=== PATIENT | female | born 1960 | race Caucasian/White ===

== ENCOUNTER 2025-04-03 15:07 | Emergency (ER) | payer SELFPAY ==
[2025-04-03] VITALS (10 sets, daily range): BP systolic 156–220; BP diastolic 88–140; PULSE 83–112; RESP 14–22; TEMP 36.7; O2SAT 93–100; BMI 20.9
--- NOTE | 2025-04-03 15:10 | ECG_ITS ---
[facility] Test Date: 2025-04-03 Pat Name: Naomi Sykes Department: Room: Gender: Female [facility] Cancer Program Coordinator: : 1960 Requested By: Misha Horton Order Number: [id number] Reading MD: YASMINE HOFFMAN Measurements Intervals [place] Rate: 87 P: 43 LA: 172 QRS: 52 QRSD: 99 T: 49 QT: 403 QTc: 487 Interpretive Statements SINUS RHYTHM NONSPECIFIC ST & T-WAVE ABNORMALITY No previous ECG available for comparison Electronically Signed On 04-05-2025 13:57:43 CDT by YASMINE HOFFMAN [email or web address] [id number]
--- NOTE | 2025-04-03 15:10 | CTR_ITS ---
PROCEDURE INFORMATION: Exam: CT Head Without Contrast Exam date and time: 04/03/2025 3:12 PM Age: 64 years old Clinical indication: Stroke-like symptoms; Syncope/collapse and vomiting; Additional info: Symptoms of acute stroke TECHNIQUE: Imaging protocol: Computed tomography of the head without contrast. Radiation optimization: All CT scans at this facility use at least one of these dose optimization techniques: automated exposure control; mA and/or kV adjustment per patient size (includes targeted exams where dose is matched to clinical indication); or iterative reconstruction. Other technique: STROKE PROTOCOL was implemented. COMPARISON: CR XR cervical spine 3V* [id number] 05/06/2019 10:31 AM RADIATION DOSE METRICS: Total DLP (mGy-cm): 1051.88 FINDINGS: Brain: Large acute left basal ganglia intraparenchymal hematoma measuring 6.5 cm AP x 3.5 cm transverse by 4.7 cm craniocaudal with mass effect and 7 mm rightward midline shift. There is intraventricular extension with hemorrhage in the lateral, 3rd and 4th ventricles. Basilar cisterns are patent. Large cavity noted in the right basal ganglia, which may reflect sequela of a remote hemorrhagic infarct. Cerebral ventricles: There is effacement of the left lateral ventricle. Prominence of the right temporal horn may reflect early hydrocephalus. Paranasal sinuses: The visualized paranasal sinuses are well aerated. Mastoid air cells: The visualized mastoids and middle ears are clear. Bones: Calvarium is intact. No evidence of acute fracture. Soft tissues: No gross soft tissue abnormality. CT/CT head thrombolytic [id number] IMPRESSION: 1. Large left basal ganglia acute intraparenchymal hematoma with 7 mm rightward midline shift and intraventricular extension. 2. Prominence of the temporal horn of the right lateral ventricle, which can be seen with early hydrocephalus. ASSESSMENT: ASPECTS ([place] Stroke Program Early CT Score) is 10.
--- NOTE | 2025-04-03 15:17 | ED_ITS ---
HPI - Neuro Symptoms/Deficit 2 General: Chief Complaint: Fall Stated Complaint: stroke like symptoms Time Seen by Provider: 04/03/25 15:10 History of Present Illness: 64-year-old female presents emergency ro om with family after having collapsed at home family [place] to the car and brought her here on arrival here she is obtunded sitting upright in a chair she has not limited movement of her right arm. She is vomiting. She has a little bit of right-sided facial droop. Family did not report any seizure-like activity she just collapsed and was poorly responsive. Related Data Allergies Allergy/AdvReac Type Severity Reaction Status Date / Time No Known Allergies Allergy Verified 04/03/25 15:24 Review of Systems 2 General: Reports: ROS unobtainable due to endotracheal tube and ROS unobtainable due to medical condition NIH stroke score 2 NIHSS: Level Of Consciousness - 1a: 3 Level Of Consciousness Questions - 1b: Neither Correct Level Of Consciousness Commands - 1c: Neither Correct Best Gaze - 2: Forced Deviation Visual Rose - 3: Complete Hemianopia F acial Palsy - 4: Partial Paralysis Motor Arm Right - 5: No Movement Motor Arm Left - 5: No Drift Motor Leg Right - 6: No Movement Motor Leg Left - 6: No Drift Limb Ataxia - 7: Present In Two Limbs Sensory - 8: Severe To Total Loss Best Language - 9: Mute; Global Aphasia Dysarthia - 10: I ntubated Extinction And Inattention - 11: 0 Score: Total Score: 28 Physical Exam 2 HENMT: COMMON NORMALS: normocephalic, atraumatic and hearing grossly normal bilaterally HEAD & SCALP: normocephalic and atraumatic Eye: OTHER: Forced eye deviation to the left Resp: COMMON NORMALS: normal respiratory effort, No retractions, No use of accessory muscles and clear to auscultation bilaterally AUSCULTATION: clear to auscultation bilaterally Cardio: COMMON NORMALS: regular rate, regular rhythm and No murmurs present (Cardio) RATE: regular rate RHYTHM: regular rhythm GI: COMMON NORMALS: Soft to palpation and No hepatosplenomegaly present A USCULTATION: Yes normoactive bowel sounds PALPATION: Yes Soft to palpation, No Tenderness to palpation present (GI), No Guarding due to palpation present (GI) and Yes No hepatosplenomegaly present Extremity: COMMON NORMALS: normal to inspection, capillary refill normal, no clubbing, cyanosis or edema, no calf tenderness and no pedal edema Skin: COMMON NORMALS: no rashes or lesions noted GENERAL SKIN EXAM: no rashes or lesions noted Procedures Intubation Time out performed: Yes sedative: Etomidate Mg Given: 20 paralytic: Vecuronium Mg Given: 10 Laryngoscope: fiber optic video scope ET Tube Size: 8 ET Tube Uncuffed: No Tube Secured Depth (cm): 22 Tube Secured Location: teeth Tube Placement Confirmation: visualized tube passing through cords, equal breath sounds bilaterally, no breath sounds over epigastrium and confirmation by capnometry Patient Tolerated Procedure: well Intubation Complications: none Course 2 Vital Signs: Vital signs: Vital Signs Temperature 98.0 F 04/03/25 15:10 Pulse Rate 101 H 04/03/25 16:22 Respiratory Rate 14 04/03/25 16:22 Blood Pressure 169/99 04/03/25 16:22 Pulse Oximetry 100 04/03/25 16:22 Oxygen Delivery Me thod Mechanical Ventil ation 04/03/25 16:20 Fraction of Inspir ed Oxygen 100 04/03/25 16:20 MDM - Neuro Symptoms/Deficit Medical Decision Making Large acute intra parenchymal intraventricular bleed due to hypertension most likely. CT reviewed patient intubated due to sonorous respirations she has been started on propofol for sedation nicardipine for blood pressure control and given TXA. Discussed with transfer line at [facility] they will accept at [place] [address] Morales will be the accepting at [facility] will transfer via air VAC Lab Data 04/03/25 15:28 04/03/25 15:[address] 04/03/25 15:10 IMPRESSION: 1. Large left basal ganglia acute intraparenchymal hematoma with 7 mm rightward midline shift and intraventricular extension. 2. Prominence of the temporal horn of the right lateral ventricle, which can be seen with early hydrocephalus. ASSESSMENT: ASPECTS ([place] Stroke Program Early CT Score) is 10. ADDENDUM: 04/03/25 1532 The findings were verbally communicated by telephone with Dr. Malik at 3:30 PM CDT on 04/03/2025. ADDENDUM: 04/03/25 1535 Approximate hematoma volume 53.5 cc. Chest X-Ray 04/03/25 15:37 IMPRESSION: 1. Endotracheal tube in place with tip 3.5 cm from the miguel. Laboratory Results WBC 14.93 10^3/uL (3.29-11.43) H 04/03/25 15: RBC 4.65 10^6/uL (3.85-5.65) 04/03/25 15: Hgb 13.40 g/dL (11.27-16.99) 04/03/25: Hct 42.4 % (36-47) 04/03/25: MCV 91.2 fl (85-98) 04/03/25 15: MCH 28.8 pg (27-33) 04/03/25: MCHC 31.6 g/dL (30-55) 04/03/25: RDW 13.1 % (12.1-15.1) 04/03/25: Plt Count 271 10^3/cmm (157-399) 04/03/25: MPV 9.7 fL (7.4-10.4) 04/03/25: Neut % (Auto) 85.3 % 04/03/25: Lymph % (Auto) 8.6 % 04/03/25: Wells % (Auto) 5.2 % 04/03/25: Eos % (Auto) 0.1 % 04/03/25: Baso % (Auto) 0.4 % 04/03/25: Neut # (Auto) 12.75 10^3/uL (1.8-7.7) H 04/03/25: Lymph # (Auto) 1.3 10^3/uL (0.8-4.8) 04/03/25: Wells # (Auto) 0.8 10^3/uL (0.2-0.9) 04/03/25: Eos # (Auto) 0.0 10^3/uL (0.0-0.8) 04/03/25: Baso # (Auto) 0.1 10^3/uL (0.0-0.1) 04/03/25: Nucleated RBC % (auto) 0 % 04/03/25: Nucleated RBCs # 0.0 /100WBC 04/03/25: PT 13.30 SECONDS (12.1-14.9) 04/03/25 15:28 INR 0.95 (0.8-1.2) 04/03/25 15: APTT 31.6 SECONDS (23.9-36.7) 04/03/25 15:28 Specimen Type Arterial 04/03/25 15:29 Sample Site Radial, right 04/03/25 15:29 ABG pH 7.39 (7.35-7.45) 04/03/25 15: ABG pCO2 38.7 mmHg (35-45) 04/03/25 15: ABG pO2 456.0 mmHg (80.0-100.0) H 04/03/25 15: ABG PO2/FiO2 Ratio 456 04/03/25 15: ABG HCO3 23.5 mmol/L (22-26) 04/03/25 15: ABG O2 Saturation > 99.1 04/03/25 15: ABG Base Excess -1.2 mmol/L (-2.0-2.0) 04/03/25 15:29 [place] Test Pos 04/03/25 15:29 A-a O2 Gradient 26.3 mmHg (5-10) H 04/03/25 15:29 Hematocrit 41.9 % (37-47) 04/03/25 15: Hgb O2 Saturation 99.5 % (95-100) 04/03/25 15: Carboxyhemoglobin 0.6 %THgb (0.4-20.1) 04/03/25 15: Methemoglobin 0.2 % (0.4-1.5) L 04/03/25 15:29 Total Hemoglobin 13.7 g/dL (12-16) 04/03/25 15:29 Sodium 142.0 mmol/L (131-143) 04/03/25 15:29 Potassium 3.1 mmol/L (3.5-5.0) L 04/03/25 15: Glucose 215.0 mg/dL (70-115) H 04/03/25 15: Ionized Calcium 1.2 mmol/L (1.1-1.4) 04/03/25 15: O2 Delivery Device Vent 04/03/25 15:29 FiO2 100.0 % 04/03/25 15:29 Tidal Volume 0.43 04/03/25 15:29 PEEP 5.0 cmH20 04/03/25 15:29 Clerk Cashier ID [place] 04/03/25 15:29 Sodium 138 mmol/L (136-145) 04/03/25 15:28 Potassium 4.0 mmol/L (3.5-5.1) 04/03/25 15:28 Chloride 103 mmol/L (98-107) 04/03/25 15:28 Carbon Dioxide 23 mmol/L (22-29) 04/03/25 15:28 Anion Gap 16.0 (5-19) 04/03/25 15:28 BUN 10 mg/dL (8-23) 04/03/25 15:28 Creatinine 1.0 mg/dL (0.5-0.9) H 04/03/25 15:28 GFR Calculation 56.0 mL/min (90-130) L 04/03/25 15:28 Glucose 219 mg/dL (65-115) H 04/03/25 15:28 POC Glucose 198 mg/dL (70-110) H 04/03/25 15:11 Calculated Osmolality 292 mOsm/kg (285-295) 04/03/25 15:28 Lactic Acid 1.9 mmol/L (0.5-2.2) 04/03/25 15:28 Calcium 9.1 mg/dL (8.5-10.5) 04/03/25 15:28 Total Bilirubin 0.4 mg/dL (0.15-1.2) 04/03/25 15:28 AST 24 U/L (0-32) 04/03/25 15:28 ALT 23 U/L (0-33) 04/03/25 15:28 Alkaline Phosphatase 85 U/L (35-105) 04/03/25 15:28 Creatine Kinase 247 U/L (26-192) H 04/03/25 15:28 Total Protein 7.4 g/dL (6.6-8.7) 04/03/25 15:28 Albumin 4.3 g/dL (3.5-5.2) 04/03/25 15:28 Globulin 3.1 g/dL (1.3-4.6) 04/03/25 15:28 Urine Color Yellow (Yellow) 04/03/25 15:53 Urine Appearance Clear (CLEAR) 04/03/25 15:53 Urine pH 7.5 (5-7) 04/03/25 15:53 Ur Specific [place] 1.012 (1.005-1.030) 04/03/25 15:53 Urine Protein 3+ (Negative) A 04/03/25 15:53 Urine Glucose (UA) 1+ (Normal) H 04/03/25 15:53 Urine Ketones 1+ (Negative) H 04/03/25 15:53 Urine Blood 2+ (Negative) A 04/03/25 15:53 Urine Nitrate Negative (Negative) 04/03/25 15:53 Urine Bilirubin Negative (Negative) 04/03/25 15:53 Urine Urobilinogen 0.2 mg/dL (Negative) 04/03/25 15:53 Ur Leukocyte Esterase Negative (Negative) 04/03/25 15:53 Urine RBC 11-20 /hpf (0-2) H 04/03/25 15:53 Urine WBC 0-5 /hpf (0-5) 04/03/25 15:53 Ur Squamous Epith Cells 0-5 /hpf (0-5) 04/03/25 15:53 Amorphous Sediment Not Reportable 04/03/25 15:53 Urine Bacteria None seen /hpf (NONE) 04/03/25 15:53 Hyaline Casts 3.30 /lpf 04/03/25 15:53 Urine Opiates Screen Negative ng/mL (Negative) 04/03/25 15:53 Ur Barbiturates Screen Negative ng/mL (Negative) 04/03/25 15:53 Ur Phencyclidine Scrn Negative ng/mL (Negative) 04/03/25 15:53 Ur Amphetamines Screen Negative ng/mL (Negative) 04/03/25 15:53 U Benzodiazepines Scrn Negative ng/mL (Negative) 04/03/25 15:53 Urine Cocaine Screen Negative ng/mL (Negative) 04/03/25 15:53 U Marijuana (THC) Screen Positive ng/mL (Negative) H 04/03/25 15:53 All radiology interpretation(s) finalized by discharge Discharge Plan Discharge Patient Disposition: Xfer Psychiatric Hosp Clinical Impression: Stroke, hemorrhagic Condition: Stable Print Language: Sami Coding Level of Care Code ED Beating Machine Operator for Johnny Leavitt
[2025-04-03] MEDS: etomidate 2 mg/mL INJ SDV 10 mL 20 MG IVP (15:28)
[2025-04-03] MEDS: vecuronium 10 mg SDV IVP (15:29)
[2025-04-03 15:35] LABS: Hematocrit 42.4 % (36-47); Hemoglobin 13.40 g/dL (11.27-16.99); Mean Corpuscular HGB Conc 31.6 g/dL (30-55); Mean Corpuscular Hemoglobin 28.8 pg (27-33); Mean Corpuscular Volume 91.2 fl (85-98); Nucleated Red Blood Cells % 0 %; Platelet Count 271 10^3/cmm (157-399); Red Blood Count 4.65 10^6/uL (3.85-5.65); White Blood Count 14.93 10^3/uL (3.29-11.43)
[2025-04-03] MEDS: nicardipine 20 MG/200 ML PREMIX 75 MG IV (15:35)
--- NOTE | 2025-04-03 15:37 | XRR_ITS ---
PROCEDURE INFORMATION: Exam: XR Chest Exam date and time: 04/03/2025 3:37 PM Age: 64 years old Clinical indication: Device placement; Other: Ng and et placement; Additional info: Post intubation TECHNIQUE: Imaging protocol: Radiologic exam of the chest. Views: 1 view. COMPARISON: CR XR cervical spine 3V* [id number] 05/06/2019 10:31 AM FINDINGS: Lungs: No focal consolidation. Pleural spaces: No evidence of pneumothorax. No evidence of pleural effusion. Heart/Mediastinum: Cardiomediastinal silhouette is within normal limits. Endotracheal tube in place with tip 3.5 cm from the miguel. Enteric tube in place with tip beyond the field of view. Bones/joints: No evidence of acute osseous abnormality. XR/XR chest 1V portable [id number] IMPRESSION: 1. Endotracheal tube in place with tip 3.5 cm from the miguel.
[2025-04-03] MEDS: tranexamic acid 1,000 MG/100 ML PREMIX 600 MG IV (15:38)
[2025-04-03 15:40] LABS: Blood Gas Allen Test Pos; Blood Gas Sample Type Arterial; Ionized Calcium Level - ABG 1.2 mmol/L (1.1-1.4); Oxygen Saturation ABG > 99.1
[2025-04-03 15:41] LABS: ABG PCO2 38.7 mmHg (35-45); ABG PH Result 7.39 (7.35-7.45); Alveolar-Arterial Oxygen Gradi 26.3 mmHg (5-10); Arterial Blood Gas Hematocrit 41.9 % (37-47); Blood Gas Operator Identificat WALCI; Blood Gas Sample Site Radial, right; Blood Gas Tidal Volume 0.43; Carboxyhemoglobin 0.6 %THgb (0.4-20.1); Glucose Level-ABG 215.0 mg/dL (70-115); HCO3 ABG 23.5 mmol/L (22-26); Methemoglobin 0.2 % (0.4-1.5); PEEP 5.0 cmH20; PO2 ABG 456.0 mmHg (80.0-100.0); PO2 FiO2 Ratio Arterial Blood 456; Potassium Level - ABG 3.1 mmol/L (3.5-5.0); Sodium Level - ABG 142.0 mmol/L (131-143)
[2025-04-03] MEDS: propofol 1,000 MG/100 ML INJ 2.69 MG IV (15:42)
[2025-04-03 15:46] LABS: INR 0.95 (0.8-1.2); Partial Thromboplastin Time 31.6 SECONDS (23.9-36.7); Prothrombin Time 13.30 SECONDS (12.1-14.9)
[2025-04-03 15:50] LABS: Alanine Aminotransferase 23 U/L (0-33); Albumin Level 4.3 g/dL (3.5-5.2); Alkaline Phosphatase 85 U/L (35-105); Anion Gap 16.0 (5-19); Aspartate Amino Transferase 24 U/L (0-32); Blood Urea Nitrogen 10 mg/dL (8-23); Calcium 9.1 mg/dL (8.5-10.5); Carbon Dioxide 23 mmol/L (22-29); Chloride 103 mmol/L (98-107); Globulin 3.1 g/dL (1.3-4.6); Glucose 219 mg/dL (65-115); Lactic Sepsis W/Reflex 1.9 mmol/L (0.5-2.2); Osmolality Calculated 292 mOsm/kg (285-295); Potassium 4.0 mmol/L (3.5-5.1); Sodium 138 mmol/L (136-145); Total Protein 7.4 g/dL (6.6-8.7)
[2025-04-03] MEDS: propofol 10 mg/mL SDV 20 mL 100 MG IVP (15:50)
--- NOTE | 2025-04-03 15:50 | PC.NURSE ---
pts shorts, shirt, bra and underwear were cut off and discarded while she was in the ER.
--- NOTE | 2025-04-03 15:54 | PC.NURSE ---
report called to Jammie Bustillo RN at [facility] at ; no further questions at end of report
--- NOTE | 2025-04-03 15:56 | PC.NURSE ---
Pt was intubated by Dr. Geiger at 1526. respiratory, nursing staff at bedside. pt was intubated with a 8.0 ET 23 at the lip. Color change was noted.
[2025-04-03 15:59] LABS: Glucose Urine UA 1+ (Normal); Nitrate Urine Negative (Negative); Specific Gravity, Urine 1.012 (1.005-1.030)
--- NOTE | 2025-04-03 15:59 | PC.NURSE ---
MD verbal to continue titration of Nicardipine above protocol of maximum limit of 15 mg/hr.
[2025-04-03 16:01] LABS: Add Urine Microscopic? YES
[2025-04-03 16:06] LABS: PCP Screen Urine Negative (Negative)
[2025-04-03 16:09] LABS: Creatinine Clr Calc Pharmacy 55.5994
--- NOTE | 2025-04-03 16:19 | PC.NURSE ---
100 mL bottle of Propofol IV and 200 mL bag of Nicardipine sent with AE crew.
--- NOTE | 2025-04-03 16:33 | PC.NURSE ---
Labetalol drip handed to AE crew to start as needed per MD verbal order.
== END 2025-04-03 16:39 ==
PROVIDERS: Emergency Provider Family Medicine
DX: I62.9 Nontraumatic intracranial hemorrhage, unspecified (principal); I10 Essential (primary) hypertension
CPT/HCPCS: 31500; 36416; 36600; 51702; 70450; 71045; 80051; 80053; 80306; 81001; 82330; 82550; 82805; 82962; 83605; 85025; 85610; 85730; 87086; 93005; 94002; 94799; 96365; 96367; 99291; J2404; J2704; J3490; J9999